=== PATIENT | male | born 1950 | race Caucasian/White ===

== ENCOUNTER 2018-01-08 06:08 | Emergency (ER) | payer MEDICARE, MEDICAID ==
[~2018-01-08] VITALS: Ht 188 cm; Wt 83.0 kg
[~2018-01-08 06:08] MED LIST: AZIT250T PO; HYDR-3965 PO
[2018-01-08 06:27] VITALS: BP 123/78
[2018-01-08] MEDS ORDERED: HYDROcodone/acetaminophen 10/325mg tab PO ONE (06:50)
[2018-01-08] MEDS ORDERED: ondansetron 4mg rapidly disintigrating tab PO ONE (06:50)
[2018-01-08] MEDS ORDERED: ONDA4TAB9 PO (06:52)
[2018-01-08] MEDS ORDERED: HYDR-565 PO (06:52)
[2018-01-08] MEDS ORDERED: acetaminophen 325mg tablet PO ONE (07:05)
== END 2018-01-08 08:03 | disposition home or self-care (01) ==
LOC: ER 06:09
DX: S60.211A Contusion of right wrist, initial encounter (principal); Z88.2 Allergy status to sulfonamides; W11.XXXA Fall on and from ladder, initial encounter; Y93.89 Activity, other specified; Y92.89 Other specified places as the place of occurrence of the external cause; Y99.8 Other external cause status
CPT/HCPCS: 29125; 29505; 29515; 73130; 99284

== ENCOUNTER 2018-10-31 02:09 | Emergency (ER) | payer MEDICARE, OTHER ==
[~2018-10-31] VITALS: Ht 188 cm; Wt 80.0 kg
[2018-10-31 02:32] VITALS: BP 115/65
== END 2018-10-31 04:03 | disposition home or self-care (01) ==
LOC: ER 02:09
DX: R23.4 Changes in skin texture (principal); F17.200 Nicotine dependence, unspecified, uncomplicated; F15.10 Other stimulant abuse, uncomplicated; Z88.2 Allergy status to sulfonamides; Z88.1 Allergy status to other antibiotic agents; Z79.899 Other long term (current) drug therapy
CPT/HCPCS: 99282

== ENCOUNTER 2019-04-05 15:02 | Day surgery (SDC) | payer MEDICARE, MEDICAID ==
[2019-04-05] VITALS (8 sets, daily range): BP systolic 140–160; BP diastolic 79–102
[~2019-04-05] VITALS: Ht 188 cm; Wt 71.2 kg
[~2019-04-05 15:02] MED LIST changes: -AZIT250T PO; -HYDR-3965 PO; +HYDR4TAB45 PO; +ONDA4TAB6 PO
[2019-04-05] MEDS ORDERED: MULT-955 PO (15:16)
[2019-04-05] MEDS ORDERED: ONDA8TAB6 PO (15:17)
[2019-04-05] MEDS ORDERED: MORP15TA PO (15:17)
[2019-04-05] MEDS ORDERED: HYDR4TAB45 PO (15:18)
[2019-04-05] MEDS ORDERED: DOCU-148 PO (15:19)
[2019-04-05] MEDS ORDERED: SENN-162 PO (15:19)
[2019-04-05] MEDS ORDERED: MIDAZolam 5mg/5ml vial ONE (15:29)
[2019-04-05] MEDS ORDERED: fentaNYL/PF 50MCG/1 ML 2ML syringe ONE (15:29)
[2019-04-05] MEDS ORDERED: meperidine/PF 100mg/ml syringe ONE (15:29)
[2019-04-05] MEDS ORDERED: LIDOcaine Viscous 15ml cup ONE (15:30)
[2019-04-05] MEDS ORDERED: glucagon, human recombinant 1mg kit ONE (15:30)
[2019-04-05] MEDS ORDERED: iohexol 300 MG/1 ML 50ml polymer ONE (15:30)
[2019-04-05] MEDS ORDERED: levoFLOXACIN-Levaquin 500mg/D5 100 ML IV ONE (15:30)
[2019-04-05] MEDS ORDERED: diphenhydrAMINE 50 mg/ml inj ONE (15:30)
== END 2019-04-05 18:00 | disposition home or self-care (01) ==
LOC: GI LAB 15:02
PROVIDERS: ATTEND Internal Medicine Gastroenterology
DX: K83.1 Obstruction of bile duct (principal); C25.0 Malignant neoplasm of head of pancreas
CPT/HCPCS: 43274; 74328; 99152; 99153; C1769; J1200; J1610; J1956; J2175; J2250; J3010; J7040; Q9967; 43262; A4620

== ENCOUNTER 2019-04-08 04:56 | Emergency (ER) | payer MEDICARE, MEDICAID ==
[~2019-04-08] VITALS: Ht 188 cm; Wt 88.0 kg
[~2019-04-08 04:56] MED LIST changes: +DOCU-148 PO; +MORP15TA PO; +MULT-955 PO; -ONDA4TAB6 PO; +ONDA8TAB6 PO; +SENN-162 PO
[2019-04-08] MEDS ORDERED: normal saline 1000ML IV soln IVB ONE (06:25)
[2019-04-08] MEDS ORDERED: methylnaltrexone br 12mg/0.6ml inj***SubQ only SQ ONE (06:25)
--- NOTE | 2019-04-08 06:36 | NUR ---
PATIENT MADE AWARE THAT URINE SAMPLE IS NEEDED.CALL LIGHT WITHIN REACH.
[2019-04-08 06:40] LABS: BASOPHILS # (AUTO) 0.1 X10'3 (0-0.2); BASOPHILS % (AUTO) 0.8 % (0-1); EOSINOPHILS # (AUTO) 0.4 X10'3 (0-0.9); EOSINOPHILS % (AUTO) 4.3 % (0-6); HEMATOCRIT 40.2 % (42.0-52.0); HEMOGLOBIN 13.4 g/dl (14.0-17.9); LYMPHOCYTES # (AUTO) 1.5 X10'3 (1.1-4.8); LYMPHOCYTES % (AUTO) 17.3 % (21-51); MEAN CORPUSCULAR HEMOGLOBIN 29.3 PG (27.0-31.0); MEAN CORPUSCULAR HGB CONC 33.3 g/dL (33.0-36.5); MEAN PLATELET VOLUME 9.7 FL (7.4-10.4); MONOCYTES # (AUTO) 0.8 X10'3 (0-0.9); NEUTROPHILS # (AUTO) 5.9 X10'3 (1.8-7.7); NEUTROPHILS % (AUTO) 68.6 % (42-75); PLATELET COUNT 302 X10'3 (140-440); RED BLOOD COUNT 4.56 X10'6 (4.70-6.10); RED CELL DISTRIBUTION WIDTH 14.8 % (11.5-14.5); WHITE BLOOD COUNT 8.5 X10'3 (4.5-11.0)
[2019-04-08 06:57] LABS: ALANINE AMINOTRANSFERASE 197 U/L (12-78); ALBUMIN 2.9 G/DL (3.4-5.0); ALBUMIN/GLOBULIN RATIO 0.7 (1.1-1.5); ALKALINE PHOSPHATASE 414 IU/L (46-116); ANION GAP 10 (8-16); ASPARTATE AMINO TRANSFERASE 86 U/L (10-37); BILIRUBIN,TOTAL 1.9 MG/DL (0.1-1.0); BLOOD UREA NITROGEN 14 MG/DL (7-18); BUN/CREATININE RATIO 15.1 (5.4-32.0); CHLORIDE 102 MMOL/L (99-107); CREATININE 0.93 MG/DL (0.60-1.10); GLUCOSE 127 MG/DL (70-104); LIPASE < 50 U/L (73-393); POTASSIUM 4.3 MMOL/L (3.5-5.1); SODIUM 139 MMOL/L (135-145); TOTAL CARBON DIOXIDE 27.1 MMOL/L (24-32); TOTAL PROTEIN 7.1 G/DL (6.4-8.2); eGFR 81 ML/MIN
[2019-04-08 07:14] LABS: CLARITY,URINE CLEAR (Clear); COLOR,URINE YELLOW (Yellow); GLUCOSE, URINE NEGATIVE (Neg); KETONES,URINE NEGATIVE (Neg); LEUKOCYTE ESTERASE ,URINE NEGATIVE (Neg); NITRITES, URINE NEGATIVE (Neg); OCCULT BLOOD,URINE TRACE-INTACT (Neg); PROTEIN,URINE NEGATIVE (Neg)
[2019-04-08 07:17] LABS: UA COLLECTION TYPE CLN CATCH MIDSTREAM
[2019-04-08 07:23] LABS: BACTERIA,URINE FEW /HPF (Neg); SQUAMOUS EPITHELIAL CELL,UR FEW /LPF (FEW)
[2019-04-08 07:24] LABS: RBC,URINE 0-2 /HPF (0-2); WBC,URINE 0-4 /HPF (0-4)
[2019-04-08 07:52] VITALS: BP 170/92
--- NOTE | 2019-04-08 09:26 | NUR ---
enema was successful. pt is having a bm
[2019-04-08] MEDS ORDERED: BISA10SU60 RC (09:57)
[2019-04-08] MEDS ORDERED: MAGN296S50 PO (09:57)
--- NOTE | 2019-04-08 10:07 | NUR ---
finished rest of the fluid from 1st enema
== END 2019-04-08 10:41 | disposition home or self-care (01) ==
LOC: ER 04:57
DX: K59.00 Constipation, unspecified (principal); Z85.07 Personal history of malignant neoplasm of pancreas; Z88.1 Allergy status to other antibiotic agents; Z88.2 Allergy status to sulfonamides; Z79.899 Other long term (current) drug therapy
CPT/HCPCS: 36415; 74176; 80053; 81001; 83690; 85025; 96372; 99284; J2212; J7030

== ENCOUNTER 2019-04-20 10:25 | Emergency (ER) | payer MEDICARE, MEDICAID ==
[~2019-04-20] VITALS: Ht 188 cm; Wt 82.8 kg
[~2019-04-20 10:25] MED LIST changes: +BISA10SU60 RC; +MAGN296S50 PO
[2019-04-20 11:59] VITALS: BP 111/68
== END 2019-04-20 12:01 | disposition home or self-care (01) ==
LOC: ER 10:26
DX: R05 Cough (principal); R09.89 Other specified symptoms and signs involving the circulatory and respiratory systems; R53.83 Other fatigue; R60.0 Localized edema; C25.9 Malignant neoplasm of pancreas, unspecified; F17.210 Nicotine dependence, cigarettes, uncomplicated; Z88.1 Allergy status to other antibiotic agents; Z88.2 Allergy status to sulfonamides; Z79.899 Other long term (current) drug therapy; Z98.890 Other specified postprocedural states
CPT/HCPCS: 71046; 99283

== ENCOUNTER 2019-04-24 00:08 | Emergency (ER) | payer MEDICARE, MEDICAID ==
[~2019-04-24] VITALS: Ht 188 cm; Wt 82.3 kg
[2019-04-24 00:11] VITALS: BP 115/69
[2019-04-24] MEDS ORDERED: dexamethasone 4mg tablet PO ONE (01:05)
[2019-04-24] MEDS ORDERED: famotidine 10mg tablet PO ONE (01:05)
[2019-04-24] MEDS ORDERED: diphenhydrAMINE 25mg capsule PO ONE (01:05)
[2019-04-24 01:44] LABS: BASOPHILS % (AUTO) 0.1 % (0-1); EOSINOPHILS % (AUTO) 0 % (0-6); HEMATOCRIT 36.5 % (42.0-52.0); HEMOGLOBIN 12.2 g/dl (14.0-17.9); LYMPHOCYTES # (AUTO) 0.6 X10'3 (1.1-4.8); LYMPHOCYTES % (AUTO) 6.1 % (21-51); MEAN CORPUSCULAR HEMOGLOBIN 28.8 PG (27.0-31.0); MEAN CORPUSCULAR HGB CONC 33.5 g/dL (33.0-36.5); MEAN PLATELET VOLUME 9.2 FL (7.4-10.4); MONOCYTES # (AUTO) 0.3 X10'3 (0-0.9); MONOCYTES % (AUTO) 3.3 % (2-12); NEUTROPHILS # (AUTO) 9.4 X10'3 (1.8-7.7); NEUTROPHILS % (AUTO) 90.5 % (42-75); PLATELET COUNT 219 X10'3 (140-440); RED BLOOD COUNT 4.25 X10'6 (4.70-6.10); RED CELL DISTRIBUTION WIDTH 13.6 % (11.5-14.5); WHITE BLOOD COUNT 10.4 X10'3 (4.5-11.0)
[2019-04-24 01:52] LABS: ALANINE AMINOTRANSFERASE 74 U/L (12-78); ALBUMIN 2.6 G/DL (3.4-5.0); ALBUMIN/GLOBULIN RATIO 0.6 (1.1-1.5); ALKALINE PHOSPHATASE 203 IU/L (46-116); ANION GAP 9 (8-16); ASPARTATE AMINO TRANSFERASE 53 U/L (10-37); BILIRUBIN,TOTAL 0.8 MG/DL (0.1-1.0); BLOOD UREA NITROGEN 14 MG/DL (7-18); BUN/CREATININE RATIO 15.1 (5.4-32.0); CHLORIDE 97 MMOL/L (99-107); CREATININE 0.93 MG/DL (0.60-1.10); GLUCOSE 125 MG/DL (70-104); SODIUM 133 MMOL/L (135-145); TOTAL CARBON DIOXIDE 27.1 MMOL/L (24-32); TOTAL PROTEIN 7.1 G/DL (6.4-8.2); eGFR 81 ML/MIN
[2019-04-24] MEDS ORDERED: famotidine 20mg tablet PO ONE (01:55)
--- NOTE | 2019-04-24 02:02 | NUR ---
Pt self administered Dilaudid PO 8 mg Extended Release for pain related to cancer.
[2019-04-24] MEDS ORDERED: PRED20TA PO (03:17)
[2019-04-25] MEDS ORDERED: DOXY100T2 PO (23:14)
== END 2019-04-24 03:29 | disposition home or self-care (01) ==
LOC: ER 00:08
DX: L50.0 Allergic urticaria (principal); R23.3 Spontaneous ecchymoses; K42.9 Umbilical hernia without obstruction or gangrene; Z85.07 Personal history of malignant neoplasm of pancreas; Z98.890 Other specified postprocedural states; Z88.1 Allergy status to other antibiotic agents; Z88.2 Allergy status to sulfonamides; Z79.899 Other long term (current) drug therapy
CPT/HCPCS: 36415; 80053; 83605; 84145; 85025; 87040; 99284; J8540; Q0163

== ENCOUNTER 2019-04-25 20:59 | Emergency (ER) | payer MEDICARE, MEDICAID ==
[~2019-04-25] VITALS: Ht 188 cm; Wt 67.5 kg
[~2019-04-25 20:59] MED LIST changes: +PRED20TA PO
[2019-04-25 22:06] LABS: BASOPHILS % (AUTO) 0.1 % (0-1); EOSINOPHILS % (AUTO) 0.1 % (0-6); HEMATOCRIT 34.8 % (42.0-52.0); HEMOGLOBIN 11.6 g/dl (14.0-17.9); LYMPHOCYTES # (AUTO) 0.5 X10'3 (1.1-4.8); MEAN CORPUSCULAR HEMOGLOBIN 28.8 PG (27.0-31.0); MEAN CORPUSCULAR HGB CONC 33.2 g/dL (33.0-36.5); MEAN CORPUSCULAR VOLUME 86.6 FL (78-98); MEAN PLATELET VOLUME 9.4 FL (7.4-10.4); MONOCYTES % (AUTO) 0.2 % (2-12); NEUTROPHILS # (AUTO) 15.5 X10'3 (1.8-7.7); NEUTROPHILS % (AUTO) 96.6 % (42-75); PLATELET COUNT 187 X10'3 (140-440); RED BLOOD COUNT 4.02 X10'6 (4.70-6.10); RED CELL DISTRIBUTION WIDTH 13.9 % (11.5-14.5)
[2019-04-25 22:17] LABS: ALANINE AMINOTRANSFERASE 65 U/L (12-78); ALBUMIN 2.5 G/DL (3.4-5.0); ALBUMIN/GLOBULIN RATIO 0.6 (1.1-1.5); ALKALINE PHOSPHATASE 197 IU/L (46-116); ANION GAP 9 (8-16); ASPARTATE AMINO TRANSFERASE 43 U/L (10-37); BILIRUBIN,TOTAL 0.7 MG/DL (0.1-1.0); BLOOD UREA NITROGEN 17 MG/DL (7-18); BUN/CREATININE RATIO 17.9 (5.4-32.0); CALCIUM 8.4 MG/DL (8.5-10.1); CHLORIDE 99 MMOL/L (99-107); CREATININE 0.95 MG/DL (0.60-1.10); GLUCOSE 256 MG/DL (70-104); POTASSIUM 4.1 MMOL/L (3.5-5.1); SODIUM 132 MMOL/L (135-145); TOTAL CARBON DIOXIDE 24.5 MMOL/L (24-32); TOTAL PROTEIN 6.8 G/DL (6.4-8.2); eGFR 79 ML/MIN
[2019-04-25 22:18] LABS: PARTIAL THROMBOPLASTIN TIME 37 SECONDS (22-32)
[2019-04-25 22:55] LABS: LIPASE < 50 U/L (73-393)
[2019-04-25] MEDS ORDERED: vancomycin/NS 1 GM ADD-VANTAGE 250 ML IV ONE (22:55)
[2019-04-25] MEDS ORDERED: DOXYCYCLINE 100MG CAPSULE PO STA (23:10)
[2019-04-25] MEDS ORDERED: DOXY100T2 PO (23:14)
[2019-04-26 00:45] VITALS: BP 117/63
== END 2019-04-26 01:30 | disposition home or self-care (01) ==
LOC: ER 21:00
DX: T45.1X5A Adverse effect of antineoplastic and immunosuppressive drugs, initial encounter (principal); L03.116 Cellulitis of left lower limb; L03.115 Cellulitis of right lower limb; Z88.1 Allergy status to other antibiotic agents; Z88.2 Allergy status to sulfonamides; Z79.899 Other long term (current) drug therapy
CPT/HCPCS: 36415; 71045; 80053; 83605; 83690; 84145; 85025; 85610; 85730; 87040; 96365; 99284; J3370

== ENCOUNTER 2019-04-28 01:09 | Emergency (ER) | payer MEDICARE, MEDICAID ==
[~2019-04-28] VITALS: Ht 188 cm; Wt 82.3 kg
[~2019-04-28 01:09] MED LIST changes: +DOXY100T2 PO
[2019-04-28] MEDS ORDERED: CLINDAMYCIN/D5W 900mg/50ml 50 ML IV ONE (04:40)
[2019-04-28] MEDS ORDERED: vancomycin/NS 1 GM ADD-VANTAGE 250 ML IV ONE (04:40)
[2019-04-28 05:26] LABS: PARTIAL THROMBOPLASTIN TIME 38 SECONDS (22-32)
[2019-04-28 05:33] LABS: ALANINE AMINOTRANSFERASE 56 U/L (12-78); ALBUMIN 2.4 G/DL (3.4-5.0); ALBUMIN/GLOBULIN RATIO 0.5 (1.1-1.5); ALKALINE PHOSPHATASE 166 IU/L (46-116); ANION GAP 8 (8-16); ASPARTATE AMINO TRANSFERASE 30 U/L (10-37); BILIRUBIN,TOTAL 0.6 MG/DL (0.1-1.0); BLOOD UREA NITROGEN 12 MG/DL (7-18); BUN/CREATININE RATIO 13.5 (5.4-32.0); CALCIUM 9.1 MG/DL (8.5-10.1); CHLORIDE 97 MMOL/L (99-107); CREATININE 0.89 MG/DL (0.60-1.10); GLUCOSE 145 MG/DL (70-104); MAGNESIUM 1.9 MG/DL (1.5-2.4); POTASSIUM 4.1 MMOL/L (3.5-5.1); SODIUM 134 MMOL/L (135-145); TOTAL CARBON DIOXIDE 28.6 MMOL/L (24-32); TOTAL PROTEIN 7.3 G/DL (6.4-8.2); eGFR 85 ML/MIN
[2019-04-28 05:46] LABS: BASOPHILS % (AUTO) 0.3 % (0-1); EOSINOPHILS # (AUTO) 0.1 X10'3 (0-0.9); EOSINOPHILS % (AUTO) 2.6 % (0-6); LYMPHOCYTES # (AUTO) 0.7 X10'3 (1.1-4.8); LYMPHOCYTES % (AUTO) 14.6 % (21-51); MEAN CORPUSCULAR HEMOGLOBIN 28.9 PG (27.0-31.0); MEAN CORPUSCULAR HGB CONC 33.5 g/dL (33.0-36.5); MEAN CORPUSCULAR VOLUME 86.3 FL (78-98); MEAN PLATELET VOLUME 9.1 FL (7.4-10.4); MONOCYTES # (AUTO) 0.1 X10'3 (0-0.9); MONOCYTES % (AUTO) 1.8 % (2-12); NEUTROPHILS % (AUTO) 80.7 % (42-75); PLATELET COUNT 182 X10'3 (140-440); RED BLOOD COUNT 4.17 X10'6 (4.70-6.10); RED CELL DISTRIBUTION WIDTH 13.5 % (11.5-14.5); WHITE BLOOD COUNT 4.9 X10'3 (4.5-11.0)
[2019-04-28 07:35] VITALS: BP 115/85
== END 2019-04-28 08:57 | disposition short-term general hospital (02) ==
LOC: ER 01:10
DX: R60.0 Localized edema (principal); L03.116 Cellulitis of left lower limb; L03.115 Cellulitis of right lower limb; C25.9 Malignant neoplasm of pancreas, unspecified; R59.0 Localized enlarged lymph nodes; Z98.890 Other specified postprocedural states; Z88.1 Allergy status to other antibiotic agents; Z88.2 Allergy status to sulfonamides; Z79.899 Other long term (current) drug therapy
CPT/HCPCS: 36415; 80053; 83605; 83735; 84145; 85025; 85610; 85730; 87040; 93005; 93971; 96365; 96366; 96368; 99285; J3370; J3490

== ENCOUNTER 2019-07-18 08:10 | Day surgery (SDC) | payer MEDICARE, MEDICAID ==
[~2019-07-18] VITALS: Ht 188 cm; Wt 76.6 kg
[2019-07-18] VITALS (9 sets, daily range): BP systolic 105–142; BP diastolic 35–86
[~2019-07-18 08:10] MED LIST changes: -PRED20TA PO
[2019-07-18] MEDS ORDERED: dexamethasone sod phosphate 4mg/ml inj. IV ONE (08:30)
[2019-07-18] MEDS ORDERED: acetaminophen 325mg tablet PO ONE (08:30)
[2019-07-18] MEDS ORDERED: diphenhydrAMINE 25mg capsule PO ONE (08:30)
[2019-07-18] MEDS ORDERED: MAGN500C17 PO (09:30)
[2019-07-18] MEDS ORDERED: SENN1TAB61 PO (09:30)
[2019-07-18] MEDS ORDERED: CLIN-90 PO (09:30)
[2019-07-18] MEDS ORDERED: PACL6VIA (09:30)
[2019-07-18] MEDS ORDERED: CBD PO (09:30)
[2019-07-18] MEDS ORDERED: FAMO20TA8 PO (09:30)
[2019-07-18] MEDS ORDERED: POLY17PO31 PO (09:30)
[2019-07-18] MEDS ORDERED: HYDR8TAB18 PO (09:30)
[2019-07-18] MEDS ORDERED: [UNRECOGNIZED DRUG - CODE] IV (09:30)
[2019-07-18] MEDS ORDERED: FERR325T28 PO (09:30)
[2019-07-18] MEDS ORDERED: SERT-153 PO (09:30)
[2019-07-18] MEDS ORDERED: METO10TA3 PO (09:30)
[2019-07-18] MEDS ORDERED: FURO-150 PO (09:30)
[2019-07-18] MEDS ORDERED: MORP30CP13 PO (09:30)
--- NOTE | 2019-07-18 13:30 | NUR ---
PT ATE 100% BREAKFAST TRAY AND 400ML PO FLUIDS-NO SIGN OF TRANSFUSION REACTION THROUGHOUT,PT DENIED SOB/CHEST PAIN/REMAINED AFEBRILE/VSS -PIV D/C'D WITH TIP INTACT-AMBULATED FROM UNIT W/STEADY GAIT Addendum: 07/18/19 at 1612 by Analilia Pinto RN Amended: Links added.
== END 2019-07-18 13:30 | disposition home or self-care (01) ==
LOC: SSTAY O 08:10
PROVIDERS: ATTEND Internal Medicine Hematology & Oncology
DX: D64.9 Anemia, unspecified (principal)
CPT/HCPCS: 36415; 36430; 86885; 86900; 86901; 86920; J1100; P9016; Q0163

== ENCOUNTER 2019-10-31 09:37 | Day surgery (SDC) | payer MEDICARE, MEDICAID ==
[~2019-10-31] VITALS: Ht 188 cm; Wt 75.6 kg
[2019-10-31] VITALS (10 sets, daily range): BP systolic 116–150; BP diastolic 59–90
[~2019-10-31 09:37] MED LIST changes: -BISA10SU60 RC; +CBD PO; +CLIN-90 PO; -DOXY100T2 PO; +FAMO20TA8 PO; +FERR325T28 PO; +FURO-150 PO; -HYDR4TAB45 PO; +HYDR8TAB18 PO; -MAGN296S50 PO; +MAGN500C17 PO; +METO10TA3 PO; -MORP15TA PO; +MORP30CP13 PO; +PACL6VIA; +POLY17PO31 PO; -SENN-162 PO; +SENN1TAB61 PO; +SERT-153 PO; +[UNRECOGNIZED DRUG - CODE] IV
[2019-10-31] MEDS ORDERED: dexamethasone sod phosphate 4mg/ml inj. IV ONE (10:10)
[2019-10-31] MEDS ORDERED: acetaminophen 325mg tablet PO ONE (10:10)
[2019-10-31] MEDS ORDERED: diphenhydrAMINE 25mg capsule PO ONE (10:10)
[2019-10-31] MEDS ORDERED: normal saline 1000ml 1,000 ML IV SCH (10:20)
== END 2019-10-31 15:00 | disposition home or self-care (01) ==
LOC: SSTAY O 09:37
PROVIDERS: ATTEND Internal Medicine Hematology & Oncology
DX: D64.81 Anemia due to antineoplastic chemotherapy (principal); C25.9 Malignant neoplasm of pancreas, unspecified
CPT/HCPCS: 36415; 36430; 86885; 86900; 86901; 86920; J1100; P9016; Q0163

== ENCOUNTER 2019-12-15 07:21 | Day surgery (SDC) | payer MEDICARE, MEDICAID ==
[~2019-12-15] VITALS: Ht 188 cm; Wt 72.5 kg
[~2019-12-15 07:21] MED LIST changes: -CLIN-90 PO; +CLIN-97 PO
[2019-12-15] MEDS ORDERED: albumin 25% 100mL bottle x 1 IV PRN (07:45)
[2019-12-15] MEDS ORDERED: normal saline 1000ml 1,000 ML IV PRN (07:45)
[2019-12-15] MEDS ORDERED: ALLO100T PO (08:05)
[2019-12-15 08:10] VITALS: BP 105/67
--- NOTE | 2019-12-15 09:20 | NUR ---
Per Ultrasound, no fluid found. Procedure cancelled.
== END 2019-12-15 09:05 | disposition home or self-care (01) ==
LOC: SSTAY O 07:21 → MED 3N 07:28 → SSTAY O 09:05
PROVIDERS: ATTEND Radiology Diagnostic Radiology
DX: R18.8 Other ascites (principal); R14.0 Abdominal distension (gaseous); C25.9 Malignant neoplasm of pancreas, unspecified; G89.29 Other chronic pain; Z88.1 Allergy status to other antibiotic agents; Z88.2 Allergy status to sulfonamides; Z79.899 Other long term (current) drug therapy
CPT/HCPCS: 76705; GO378